=== PATIENT | female | born 1980 | race Hispanic/Latino ===

== ENCOUNTER → 2025-01-27 07:59 | Outpatient (REF) | payer OTHER, SELFPAY ==
[2025-01-27 09:07] LABS: Hematocrit 35.3 % (37.0-47.0); Hemoglobin 11.5 g/dL (12.0-16.0); Mean Corp Hgb Conc. 32.6 g/dL (33.0-37.0); Mean Corpuscular Volume 74.8 fL (81.0-99.0); Platelet Count 328 10^3/uL (130-400); Red Cell Dist. Width 17.0 % (11.5-14.5)
[2025-01-27 10:05] LABS: Glycohemoglobin (HgbA1c) 5.7 % (4.0-5.6)
[2025-01-27 10:18] LABS: ALT (SGPT) 33 U/L (0-35); AST (SGOT) 32 U/L (14-36); Albumin 4.2 g/dl (3.5-5.0); Alkaline Phosphatase 100 U/L (38-126); Blood Urea Nitrogen 14 mg/dl (7-17); Calcium 8.4 mg/dl (8.4-10.2); Carbon Dioxide 17 mmol/L (22-30); Chloride 111 mmol/L (98-107); Glucose 106 mg/dl (70-99); HDL Cholesterol 53 mg/dl; LDL Cholesterol, Calculated 116 mg/dl; Potassium 4.7 mmol/L (3.5-5.1); Sodium 136 mmol/L (135-145); Total Protein 7.1 g/dl (6.3-8.2); Very Low Density Lipoprotein 33 mg/dl (0-30); eGFR > 60.00
== END ==
LOC: REG 07:59
PROVIDERS: ATTENDING PHYSICIAN Nurse Practitioner Adult Health
DX: R73.03 Prediabetes (principal)
CPT/HCPCS: 36415; 80053; 80061; 83036; 84443; 85027

== ENCOUNTER → 2025-01-29 10:59 | Outpatient (REF) | payer OTHER, SELFPAY | LOC: WDC 10:59 | PROVIDERS: ATTENDING PHYSICIAN Nurse Practitioner Adult Health | DX: Z12.31 Encounter for screening mammogram for malignant neoplasm of breast (principal) | CPT/HCPCS: 77063; 77067 ==